=== PATIENT | female | born 1995 | race Caucasian/White ===

== ENCOUNTER 2016-05-31 11:07 | Emergency (ER) | payer OTHER ==
[2016-05-31 11:19] VITALS: BP 157/100; TEMP 98.1
[2016-05-31] MEDS ORDERED: IBUPROFEN 600 MG TAB PO ONE (12:12)
--- NOTE | 2016-05-31 12:55 | EDPHY ---
H & P Time Seen by Provider: 05/31/16 11:38 HPI/ROS: CHIEF COMPLAINT: Cough, shortness of breath, chest pain HISTORY OF PRESENT ILLNESS: 21-year-old female presents to the emergency department by private vehicle complaining of cough and shortness of breath. The patient started feeling sick on Wednesday, 5 days ago and since yesterday has had more pain to the anterior aspect of her chest. She feels short of breath. She has a history of asthma and used to nebulizers in the middle of the night to help her breathe. She has had high fevers last few days. She did not receive a flu shot this year but she normally does get flu shot annually. No known ill contacts. No recent travel. No rash. No abdominal pain or vomiting. REVIEW OF SYSTEMS: Constitutional: Subjective fevers and chills as above Eyes: No double or blurry vision. ENT: sore throat. Respiratory: Cough, shortness of breath Cardiac: Anterior chest pain as above Gastrointestinal: No abdominal pain, vomiting or diarrhea. Genitourinary: No dysuria. Musculoskeletal: No neck or back pain. Skin: No rashes. Neurological: No headache. Past Medical/Surgical History: Asthma Social History: [employer] student Smoking Status: Never smoked Physical Exam: General Appearance: Alert, no distress. Wound 57/100, 97% on room air. 36.7 temperature Eyes: Pupils equal and round. Extraocular motions are all intact. ENT: Mouth: Mucous membranes moist. Mild posterior pharyngeal injection noted. Respiratory: No wheezing, rhonchi, or rales, lungs are clear to auscultation. Reproducible pain with palpation to the anterior aspect of her chest along the sternum as well as just to the lateral aspect of her sternum both the left and the right side. No palpable crepitus or other bony abnormality. Cardiovascular: Regular rate and rhythm. Gastrointestinal: Abdomen is soft and nontender, no masses, no rebound or guarding, bowel sounds normal. Neurological: Alert and oriented x 3, cranial nerves II through XII grossly intact Skin: Warm and dry, no rashes. Musculoskeletal: Nontender to palpate along the cervical, thoracic or lumbar spine. Neck is supple. Extremities: Full range of motion and no peripheral edema. Psychiatric: Patient is oriented X 3, there is no agitation. Constitutional: Initial Vital Signs Temperature (C) 36.7 C 05/31/16 11:17 Heart Rate 84 05/31/16 11:17 Respiratory Rate 22 H 05/31/16 11:17 Blood Pressure 157/100 H 05/31/16 11:17 O2 Sat (%) 98 05/31/16 11:17 O2 Delivery Mode Room Air Allergies/Adverse Reactions: Penicillins Allergy (Verified 05/31/16 11:15) Home Medications: Medication Instructions Recorded Advair 100/50 (*) 05/31/16 Albuterol Sulfate [ALBUTEROL 0.63 mg IH Q4 PRN #25 05/31/16 SULFATE] Combivent Respimat Inhal Payne(*) 05/31/16 predniSONE 40 mg PO DAILY 5 Days 05/31/16 Medical Decision Making - Diagnostics Imaging: Chest x-ray reveals no acute pulmonary disease. This is reviewed by myself the PAC system as well as by the radiologist. ED Course/Re-evaluation: 21-year-old female presents to the emergency department with shortness of breath. She has a history of asthma. She tried to nebulizers at home earlier this morning with relief but still feels short of breath and tightness in her chest. The patient has reproducible pain with palpation to the anterior aspect of the chest. Patient was given 600 mg of ibuprofen p. o.. She was given a DuoNeb and was feeling much better. The patient will be sent home with prednisone 40 mg daily for 5 days. She will continue her DuoNeb and albuterol nebs Roberts. She was instructed to continue her Advair and to follow up with her primary care provider. She was instructed to return if she felt any change in symptoms or if she felt worse in any way. I think this patient likely has influenza even though the rapid influenza was negative. The patient has been sick for at least 5 days. I do not think Tamiflu is indicated. Rapid strep test was negative. Chest x-ray was unremarkable. Differential Diagnosis: Including but not limited to influenza, viral upper respiratory infection, bronchitis, pneumonia, strep pharyngitis - Data Points Laboratory Results: 05/31/16 05/31/16 05/31/16 Unknown 13:24 11:25 Influenza Typ A,B (DFA) NEGATIVE FOR FLU (NEGATIVE) Group A Strep Screen NEGATIVE (NEGATIVE) Group A Strep DNA Pending Medications Given: Discontinued Medications Albuterol/Ipratropium (Duoneb) 3 ml IH EDNOW ONE Stop: 05/31/16 13:57 Last Admin: 05/31/16 14:04 Dose: 3 ml Ibuprofen (Motrin) 600 mg PO EDNOW ONE Stop: 05/31/16 12:13 Last Admin: 05/31/16 12:44 Dose: 600 mg Departure - Departure Disposition: Home, Routine, Self-Care Clinical Impression: Upper respiratory infection Qualifiers: URI type: unspecified URI Qualifier Code: (J06.9) Acute upper respiratory infection, unspecified Condition: Good Instructions: Upper Respiratory Infection (ED), Asthma (ED) Additional Instructions: Prednisone daily for 5 days. Continue Advair as prescribed. Continue DuoNeb and albuterol nebulizer as needed. Return to the emergency department if he develops fever, difficulty breathing, or if you feel worse in any way. Referrals: IN STATE,. [Primary Care Provider] - As per Instructions Stand Alone Forms: School Excuse Prescriptions: Albuterol Sulfate [ALBUTEROL SULFATE] 0.63 mg IH Q4 PRN #25 PRN Reason: Short Of Breath/Dyspnea predniSONE 40 mg PO DAILY 5 Days
--- NOTE | 2016-05-31 13:17 | DX ---
Chest, PA Upright and Lateral Views May 31, 2016 at 11:52 a.m. Clinical History: 21-year-old female with a history of asthma, complaining of a cough and difficulty breathing since Wednesday. Comparison Study: None. Findings: The cardiac and mediastinal silhouettes are normal in size. There is mild central perihilar bronchial wall thickening. The lungs are hyperexpanded with an inspiratory depth at the 11th posteri or rib level. The above features would be consistent with reactive airways' disease. There is no foca l alveolar consolidation, pleural effusion, peripheral interstitial edema, or pneumothorax. The trach ea is midline. There are some mild degenerative changes seen in the lower thoracic spine. Impression: Lung hyperexpansion with mild perihilar bronchial wall thickening is consistent with reac tive airways' disease and/or mild bronchitis. There is no focal alveolar consolidation.
[2016-05-31] MEDS ORDERED: IPRATROPIUM/ALBUTEROL 3 ML DEYVIAL IH ONE (13:56)
[2016-05-31 14:06] VITALS: RESP 18
[2016-05-31 14:55] VITALS: PULSE 96; O2SAT 96
== END 2016-05-31 14:54 | disposition home or self-care (01) ==
DX: J06.9 Acute upper respiratory infection, unspecified (principal); J45.909 Unspecified asthma, uncomplicated